=== PATIENT | male | born 1985 | race Caucasian/White ===

== ENCOUNTER 2016-05-05 12:34 | Emergency (ER) | payer BC ==
[2016-05-05 13:07] VITALS: BP 131/93
[2016-05-05] MEDS ORDERED: Proparacaine 0.5% Ophth Soln 15 ML Bottle EYELF ONE (13:16)
--- NOTE | 2016-05-05 13:28 | EDM.PDOC ---
ED HPI EYE COMPLAINT - General Chief Complaint: Eye Problems Stated Complaint: REDNESS TO LEFT EYE Time Seen by Provider: 05/05/16 13:11 - History of Present Illness INITIAL COMMENTS - FREE TEXT/NARRATIVE: HISTORY AND PHYSICAL: History of present illness: The patient is a 30-year-old male with no stated medical history who presents with complaints of 2 days of itchiness and redness and pain to his left eye. The patient states he does wear contact lenses, extended wear, and his eye was hurting as he removed his contact lens the other night. He states he does remove his lenses nightly to clean them and there've never been any issues with that. He denies any foreign body sensation but does feel like I as achy. Vision is slightly blurred in the left eye. He has had no head trauma no nausea no vomiting or fever or viral symptoms. He has no sinus congestion or drainage. Currently in the ED he said the light is bothering his eyes and his discomfort but he doesn't feel it is a foreign body. Patient does state that when he woke up this morning there was some crusting that yesterday there was none. Review of systems: As per history of present illness and below otherwise all systems reviewed and negative. Past medical history: As per history of present illness and as reviewed below otherwise noncontributory. Surgical history: As per history of present illness and as reviewed below otherwise noncontributory. Social history: No reported history of drug or alcohol abuse. Family history: As per history of present illness and as reviewed below otherwise noncontributory. Physical exam: General: Well-developed well-nourished man who is nontoxic and has no gross facial swelling. His visual acuity in the right eye is 20/15 left eye 20/25 with glasses. HEENT: Atraumatic, normocephalic, pupils reactive, EOMs intact, sclera of the left eye is grossly injected but no crusting is appreciated or eyelid swelling negative for conjunctival pallor or scleral icterus, mucous membranes moist, throat clear, neck supple, nontender, trachea midline. Lungs: Clear to auscultation, breath sounds equal bilaterally, chest nontender. Heart: S1S2, regular, negative for clicks, rubs, or JVD. Abdomen: Soft, nondistended, nontender. NABS Genitourinary: Deferred. Rectal: Deferred. Extremities: Atraumatic, negative for cords or calf pain. Neurovascular unremarkable. Neuro: Awake, alert, oriented. Cranial nerves II through XII unremarkable. Cerebellum unremarkable. Motor and sensory unremarkable throughout. Exam nonfocal. Diagnostics: Visual acuity Therapeutics: Proparacaine fluorescein exam On fluorescein stain there is a small area of uptake at the 5:00 position just off the rim of the iris and there is diffuse uptake throughout the injected dye. 1324: Case was discussed with her leader tier Dr. Ramirez who recommends Vigamox and he will see the patient on Saturday for followup. Patient was informed of this plan Impression: Corneal abrasion and diffuse iritis secondary to contact lens use Definitive disposition and diagnosis as appropriate pending reevaluation and review of above. - Related Data Allergies/ADRs: Allergies No Known Allergies Allergy (Verified 05/05/16 13:08) Home Meds: Ambulatory Orders Medication Instructions Recorded Confirmed . [No Known Home Meds] 05/05/16 05/05/16 Past Medical History - Past Health History Medical/Surgical History: Denies Medical/Surgical History Social & Family History - Tobacco Use Smoking Status *Q: Former Smoker - Caffeine Use Caffeine Use: Reports: Energy drinks, Tea - Recreational Drug Use Recreational Drug Use: No ED ROS GENERAL - Review of Systems Review Of Systems: ROS reveals no pertinent complaints other than HPI. ED EXAM GENERAL W FULL EYE - Physical Exam Exam: See Below (See dictation) Course - Vital Signs Last Recorded V/S: Last Vital Signs Temp 36.4 C 05/05/16 13:05 Pulse 89 05/05/16 13:05 Resp 16 05/05/16 13:05 BP 131/93 H 05/05/16 13:05 Pulse Ox 98 05/05/16 13:05 - Orders/Labs/Meds Meds: Medications Discontinued Medications Generic Name Dose Route Start Last Admin Trade Name Freq PRN Reason Stop Dose Admin Proparacaine HCl 1 ml 05/05/16 13:16 05/05/16 13:19 Proparacaine 0.5% Ophth Soln EYELF 05/05/16 13:17 5 ml ONETIME ONE Administration Departure - Departure Time of Disposition: 13:28 Disposition: Home, Self-Care 01 Condition: good Clinical Impression: Iritis Corneal abrasion Qualifiers: Encounter type: initial encounter Laterality: left Qualified Code(s): S05.02XA - Injury of conjunctiva and corneal abrasion without foreign body, left eye, initial encounter Forms: ED Department Discharge Additional Instructions: The following information is given to patients seen in the emergency department who are being discharged to home. This information is to outline your options for follow-up care. We provide all patients seen in our emergency department with a follow-up referral. The need for follow-up, as well as the timing and circumstances, are variable depending upon the specifics of your emergency department visit. If you don't have a primary care physician on staff, we will provide you with a referral. We always advise you to contact your personal physician following an emergency department visit to inform them of the circumstance of the visit and for follow-up with them and/or the need for any referrals to a consulting specialist. The emergency department will also refer you to a specialist when appropriate. This referral assures that you have the opportunity for followup care with a specialist. All of these measure are taken in an effort to provide you with optimal care, which includes your followup. Under all circumstances we always encourage you to contact your private physician who remains a resource for coordinating your care. When calling for followup care, please make the office aware that this follow-up is from your recent emergency room visit. If for any reason you are refused follow-up, please contact the [facility] emergency department at and ask to speak to the emergency department charge nurse. [address] [address] Please call the clinic, ophthalmology clinic, to be seen on Saturday and if you feel that the symptoms are not improving and are worsening please call Dr. Ramirez on his cell phone, . Please use the eyedrops as prescribed and avoid the light. Full compresses to eye as needed and [id number] Tylenol or ibuprofen. Please do not please contact lens in your eyes.
== END 2016-05-05 13:38 | disposition home or self-care (01) ==
LOC: MW.ED 12:34
DX: S05.02XA Injury of conjunctiva and corneal abrasion without foreign body, left eye, initial encounter (principal); H20.22 Lens-induced iridocyclitis, left eye; Z87.891 Personal history of nicotine dependence; X58.XXXA Exposure to other specified factors, initial encounter
CPT/HCPCS: 99282; 99283